=== PATIENT | female | born 1940 | race African-American/Black ===

== ENCOUNTER 2019-08-21 05:54 | Day surgery (SDC) | payer MEDICARE, OTHER ==
[~2019-08-21] VITALS: Ht 167.6 cm; Wt 80.1 kg
[2019-08-21] MEDS ORDERED: MICARDIS80 MG PO (06:46)
[2019-08-21] MEDS ORDERED: LEVOXYL0.025 MG PO (06:46)
[2019-08-21] MEDS ORDERED: VYTORIN 10 MG-41 TAB PO (06:47)
[2019-08-21] MEDS ORDERED: ULTRAM 50MG TAB50 MG PO (06:47)
[2019-08-21] MEDS ORDERED: TYLENOL 500MG500 MG PO (06:48)
[2019-08-21] MEDS ORDERED: ROBAXIN 75750 MG/TAB PO (06:48)
[2019-08-21] MEDS ORDERED: ZOVIRAX400 MG PO (06:49)
[2019-08-21] MEDS ORDERED: LACTULOSE10 GM/153 PO (06:50)
[2019-08-21 06:59] VITALS: BP 130/66; PULSE 71; TEMP 98.8
[2019-08-21 08:00] VITALS: BP 120/71; PULSE 66; TEMP 97.1
--- NOTE | 2019-08-21 08:00 | NUR ---
The patient arrived back to [facility] from the endoscopy suite at this time. The patient ambulated from the cart to the recliner in her room with the assistance of two and appeared to tolerate the activity well. The patient appears drowsy but arouses easily to her name. The patient denie wanting anything to eat to drink at this time. Post procedure vital signs were started at this time. Family at bedside. Call light is within reach. Will continue to monitor the patient.
[2019-08-21 08:15] VITALS: BP 130/61; PULSE 58
--- NOTE | 2019-08-21 08:15 | NUR ---
The patient appears more alert at this time and agrees to try some juice, pudidng and toast. The patient's vital signs appear stable. The patient's family remains at her bedside. Will continue to monitor the patient.
[2019-08-21 08:30] VITALS: BP 118/55; PULSE 62
--- NOTE | 2019-08-21 08:30 | NUR ---
The patient appears to be tolerating the food and drink well. The patient's vital signs remain stable. Will continue to monitor the patient.
[2019-08-21 08:45] VITALS: BP 117/62; PULSE 60
--- NOTE | 2019-08-21 08:50 | NUR ---
Discharge instructions were reviewed with the patient and her family at this time. They all verbalized understanding and have no questions for the nurse at this time. The patient's IV to her right anecubital was removed and a pressure dressing was applied to the site. The patient's family is going to help her get changed and notify the staff when she is ready to be escorted out.
--- NOTE | 2019-08-21 09:10 | NUR ---
The patient was escorted out via wheelchair to a private vehicle by LEW Del Angel. The patient's belongings and discharge paperwork were sent with her. The patient's family is present to drive her home.
== END 2019-08-21 09:10 | disposition home or self-care (01) ==
LOC: SDCO 05:54
DX: Z12.11 Encounter for screening for malignant neoplasm of colon (principal); K63.5 Polyp of colon; K62.89 Other specified diseases of anus and rectum; K57.30 Diverticulosis of large intestine without perforation or abscess without bleeding; Z88.0 Allergy status to penicillin; Z88.2 Allergy status to sulfonamides
CPT/HCPCS: J2250; J3010; J7030

== ENCOUNTER → 2019-09-13 | Outpatient (CLI) | payer MEDICARE, OTHER ==
[~2019-09-13] MED LIST: LACTULOSE10 GM/153 PO; LEVOXYL0.025 MG PO; MICARDIS80 MG PO; ROBAXIN 75750 MG/TAB PO; TYLENOL 500MG500 MG PO; ULTRAM 50MG TAB50 MG PO; VYTORIN 10 MG-41 TAB PO; ZOVIRAX400 MG PO
== END ==
LOC: MC.RAD 14:07
DX: Z12.31 Encounter for screening mammogram for malignant neoplasm of breast (principal); N63.20 Unspecified lump in the left breast, unspecified quadrant

== ENCOUNTER → 2019-09-20 | Outpatient (CLI) | payer MEDICARE, OTHER | LOC: MC.RAD 13:00 | DX: N63.20 Unspecified lump in the left breast, unspecified quadrant (principal) ==

== ENCOUNTER → 2020-03-24 | Outpatient (CLI) | payer MEDICARE, OTHER | LOC: COL.VAS 13:18 | DX: R55 Syncope and collapse (principal) ==

== ENCOUNTER 2020-05-17 21:21 | Inpatient (IN) | payer MEDICARE, OTHER ==
[~2020-05-17] VITALS: Ht 165.1 cm; Wt 90.5 kg
[2020-05-17 22:01] LABS: BASO % 0.3 % (0.0-2.0); GRAN # 4.6 (1.4-6.5); GRAN % 64.5 % (42.2-75.2); HEMOGLOBIN 11.3 g/dl (12.5-16.0); LYMPH % 28.1 % (20.0-51.0); MEAN CELL VOLUME 83 fl (80.0-100.0); MEAN CORPUSCULAR HEMOGLOBIN 27 pg (27.0-31.0); MEAN CORPUSCULAR HGB CONC 33 g/dl (33.0-37.0); MEAN PLATELET VOLUME 10.3 fl (7.4-10.4); MONO # 0.5 (0.1-0.6); MONO % 6.4 % (1.7-9.3); PLATELET COUNT 303 K/mm3 (130-400); RED BLOOD COUNT 4.14 M/mm3 (4.10-5.30); REDCELL DISTRIBUTION WIDTH-CV 14.4 % (11.5-14.5)
[2020-05-17 22:07] LABS: INR 1.1 (0.8-3.0); PROTHROMBIN TIME 11.8 SECONDS (9.7-12.8)
[2020-05-17 22:08] LABS: HEMATOCRIT 34.4 % (37.0-47.0)
[2020-05-17 22:09] LABS: PARTIAL THROMBOPLASTIN TIME 26.9 SECONDS (26.0-37.0)
[2020-05-17 22:12] LABS: ALBUMIN 4.2 gm/dL (3.5-5.0); BILIRUBIN,TOTAL 0.5 mg/dL (0.0-1.0); CALCIUM 9.4 mg/dL (8.4-10.2); CREATININE, serum 5.23 (0.52-1.25); POTASSIUM 5.2 mmol/L (3.4-5.0); TOTAL PROTEIN 8.8 gm/dL (6.4-8.2)
[2020-05-17 22:13] LABS: COLLECTION METHOD CATHETER
[2020-05-17 22:21] LABS: BUDDING YEAST Present /hpf; HYALINE CAST >12 /lpf; MUCOUS Present /lpf; PH 5 (5-8); SQUAMOUS EPITHELIAL 0-2 /hpf; URINE APPEARANCE Cloudy; URINE BACTERIA Rare /hpf; URINE BILIRUBIN Negative (NEGATIVE); URINE BLOOD Negative (NEGATIVE); URINE COLOR Amber; URINE GLUCOSE Negative (NEGATIVE); URINE KETONE Negative (NEGATIVE); URINE LEUKOCYTE ESTERASE Negative (NEGATIVE); URINE NITRATE Negative (NEGATIVE); URINE PROTEIN(semi-quant) 1+ (NEGATIVE); URINE UROBILINOGEN Negative (NEGATIVE)
[2020-05-17 22:31] LABS: TROPONIN-I 0.038 ng/mL (0.000-0.035)
[2020-05-18] VITALS (365 sets, daily range): BP systolic 113–157; BP diastolic 7–77; PULSE 65–81; TEMP 98.2–99.5; O2SAT 92–100
[2020-05-18 01:58] LABS: TSH w REFLEX 2.67 uIU/mL (0.465-4.680)
[2020-05-18 03:04] LABS: CREATININE, serum 4.25 (0.52-1.25)
[2020-05-18 03:15] LABS: FRACTIONAL EXCRETION OF NA+ 0.2 %
[2020-05-18 05:00] LABS: ALBUMIN 3.7 gm/dL (3.5-5.0); BILIRUBIN,TOTAL 0.4 mg/dL (0.0-1.0); CALCIUM 8.8 mg/dL (8.4-10.2); CREATININE, serum 3.9 (0.52-1.25); TOTAL PROTEIN 7.6 gm/dL (6.4-8.2)
[2020-05-18 05:02] LABS: BASO % 0.3 % (0.0-2.0); EOS % 0.3 % (0-4.0); GRAN # 4.8 (1.4-6.5); GRAN % 66.7 % (42.2-75.2); HEMATOCRIT 32.8 % (37.0-47.0); HEMOGLOBIN 10.5 g/dl (12.5-16.0); LYMPH % 27.3 % (20.0-51.0); MEAN CELL VOLUME 85 fl (80.0-100.0); MEAN CORPUSCULAR HEMOGLOBIN 27 pg (27.0-31.0); MEAN CORPUSCULAR HGB CONC 32 g/dl (33.0-37.0); MEAN PLATELET VOLUME 9.9 fl (7.4-10.4); MONO # 0.4 (0.1-0.6); MONO % 4.8 % (1.7-9.3); PLATELET COUNT 255 K/mm3 (130-400); RED BLOOD COUNT 3.87 M/mm3 (4.10-5.30); REDCELL DISTRIBUTION WIDTH-CV 14.6 % (11.5-14.5)
[2020-05-18 05:11] LABS: TROPONIN-I 6 HR POST INITIAL 0.026 ng/mL (0.000-0.034)
[2020-05-18 14:56] LABS: PARTIAL THROMBOPLASTIN TIME 31.3 SECONDS (26.0-37.0)
[2020-05-19] VITALS (7 sets, daily range): BP systolic 137–176; BP diastolic 51–76; PULSE 53–68; TEMP 97.8–99.4
[2020-05-19 09:21] LABS: BASO % 0.3 % (0.0-2.0); EOS % 0.3 % (0-4.0); GRAN # 4.6 (1.4-6.5); GRAN % 73.3 % (42.2-75.2); LYMPH # 1.2 (1.2-3.4); LYMPH % 19.9 % (20.0-51.0); MEAN CELL VOLUME 85 fl (80.0-100.0); MEAN CORPUSCULAR HGB CONC 32 g/dl (33.0-37.0); MEAN PLATELET VOLUME 9.9 fl (7.4-10.4); MONO # 0.4 (0.1-0.6); MONO % 5.6 % (1.7-9.3); PLATELET COUNT 304 K/mm3 (130-400); RED BLOOD COUNT 3.28 M/mm3 (4.10-5.30); REDCELL DISTRIBUTION WIDTH-CV 14.7 % (11.5-14.5)
[2020-05-19 09:27] LABS: BILIRUBIN,TOTAL 0.2 mg/dL (0.0-1.0); CALCIUM 8.4 mg/dL (8.4-10.2); CREATININE, serum 1.31 (0.52-1.25); HEMATOCRIT 27.7 % (37.0-47.0); HEMOGLOBIN 8.8 g/dl (12.5-16.0); MEAN CORPUSCULAR HEMOGLOBIN 27 pg (27.0-31.0); POTASSIUM 4.6 mmol/L (3.4-5.0); TOTAL PROTEIN 6.4 gm/dL (6.4-8.2)
[2020-05-19 18:23] LABS: HEMATOCRIT 28.8 % (37.0-47.0); HEMOGLOBIN 9.2 g/dl (12.5-16.0)
[2020-05-19 19:04] LABS: PARTIAL THROMBOPLASTIN TIME 168.4 SECONDS (26.0-37.0)
[2020-05-19 21:39] LABS: PARTIAL THROMBOPLASTIN TIME 78.5 SECONDS (26.0-37.0)
[2020-05-20] VITALS (7 sets, daily range): BP systolic 141–173; BP diastolic 50–83; PULSE 55–76; TEMP 98.6–99.7
[2020-05-20 04:45] LABS: BASO % 0.4 % (0.0-2.0); EOS # 0.1 (0.0-0.7); EOS % 1.1 % (0-4.0); GRAN # 3.7 (1.4-6.5); GRAN % 66.4 % (42.2-75.2); LYMPH # 1.4 (1.2-3.4); MEAN CELL VOLUME 84 fl (80.0-100.0); MEAN CORPUSCULAR HGB CONC 32 g/dl (33.0-37.0); MEAN PLATELET VOLUME 10.2 fl (7.4-10.4); MONO # 0.4 (0.1-0.6); MONO % 6.6 % (1.7-9.3); PLATELET COUNT 279 K/mm3 (130-400); RED BLOOD COUNT 3.12 M/mm3 (4.10-5.30); REDCELL DISTRIBUTION WIDTH-CV 14.6 % (11.5-14.5)
[2020-05-20 04:47] LABS: HEMATOCRIT 26.2 % (37.0-47.0); HEMOGLOBIN 8.3 g/dl (12.5-16.0); MEAN CORPUSCULAR HEMOGLOBIN 27 pg (27.0-31.0)
[2020-05-20 04:58] LABS: ALBUMIN 2.7 gm/dL (3.5-5.0); BILIRUBIN,TOTAL 0.2 mg/dL (0.0-1.0); CALCIUM 7.9 mg/dL (8.4-10.2); CREATININE, serum 0.94 (0.52-1.25); POTASSIUM 3.6 mmol/L (3.4-5.0)
[2020-05-20 05:22] LABS: TROPONIN-I 6 HR POST INITIAL 0.036 ng/mL (0.000-0.034)
[2020-05-21 03:54] VITALS: BP 151/57; PULSE 67; TEMP 99.3
[2020-05-21 07:47] LABS: MEAN CELL VOLUME 83 fl (80.0-100.0); MEAN CORPUSCULAR HGB CONC 33 g/dl (33.0-37.0); MEAN PLATELET VOLUME 11.1 fl (7.4-10.4); PLATELET COUNT 294 K/mm3 (130-400); RED BLOOD COUNT 3.25 M/mm3 (4.10-5.30); REDCELL DISTRIBUTION WIDTH-CV 14.4 % (11.5-14.5)
[2020-05-21 07:48] LABS: HEMATOCRIT 26.9 % (37.0-47.0); HEMOGLOBIN 8.8 g/dl (12.5-16.0); MEAN CORPUSCULAR HEMOGLOBIN 27 pg (27.0-31.0)
[2020-05-21 07:54] VITALS: BP 151/67; PULSE 60; TEMP 98.8
[2020-05-21 07:59] LABS: ALBUMIN 2.9 gm/dL (3.5-5.0); BILIRUBIN,TOTAL 0.2 mg/dL (0.0-1.0); CALCIUM 8.5 mg/dL (8.4-10.2); CREATININE, serum 0.94 (0.52-1.25); POTASSIUM 3.6 mmol/L (3.4-5.0); TOTAL PROTEIN 6.4 gm/dL (6.4-8.2)
[2020-05-21 09:06] LABS: BAND 7 % (0-10); EOSINOPHIL 1 % (0-4); LYMPHOCYTE 27 % (20.0-51.0); NEUTROPHILS 62 % (42.0-75.2); PLATELET ESTIMATE NORMAL (NORMAL)
[2020-05-21 12:08] VITALS: BP 144/66; PULSE 68; TEMP 98.6
[2020-05-21 16:46] VITALS: BP 167/55; PULSE 56; TEMP 98
[2020-05-21 19:31] VITALS: BP 165/55; PULSE 58; TEMP 99
[2020-05-21 23:19] VITALS: BP 157/62; PULSE 59; TEMP 100
[2020-05-22 03:30] VITALS: BP 164/51; PULSE 56; TEMP 98.6
[2020-05-22 06:33] LABS: MEAN CELL VOLUME 84 fl (80.0-100.0); MEAN CORPUSCULAR HGB CONC 33 g/dl (33.0-37.0); MEAN PLATELET VOLUME 10.8 fl (7.4-10.4); PLATELET COUNT 330 K/mm3 (130-400); RED BLOOD COUNT 3.24 M/mm3 (4.10-5.30); REDCELL DISTRIBUTION WIDTH-CV 14.4 % (11.5-14.5)
[2020-05-22 06:36] LABS: HEMATOCRIT 27.1 % (37.0-47.0); HEMOGLOBIN 8.8 g/dl (12.5-16.0); MEAN CORPUSCULAR HEMOGLOBIN 27 pg (27.0-31.0)
[2020-05-22 06:37] LABS: CALCIUM 8.7 mg/dL (8.4-10.2); CREATININE, serum 0.88 (0.52-1.25); MAGNESIUM 1.6 mg/dL (1.6-2.3); POTASSIUM 3.4 mmol/L (3.4-5.0)
[2020-05-22 07:42] LABS: BAND 13 % (0-10); EOSINOPHIL 2 % (0-4); LYMPHOCYTE 24 % (20.0-51.0); METAMYELOCYTE 1 % (0-0); NEUTROPHILS 54 % (42.0-75.2); PLATELET ESTIMATE NORMAL (NORMAL)
[2020-05-22] MEDS ORDERED: ELIQUIS 5MG PO (08:26)
[2020-05-22 08:36] VITALS: BP 166/63; PULSE 56; TEMP 98.7
[2020-05-22] MEDS ORDERED: ASPIRIN E.C. 8181 MG PO (09:14)
[2020-05-22] MEDS ORDERED: OMNICEF 300MG300 MG PO (09:19)
== END 2020-05-22 11:44 | DRG 871 ==
LOC: COL.ER 21:21 → ICU 23:26 → MEDICAL 05-18 16:50
PROVIDERS: Emergency Medicine; Nurse Practitioner Family; Physician Assistant; Student in an Organized Health Care Education/Training Program; ADMIT Hospitalist
PROC: 02HV33Z Insertion of Infusion Device into Superior Vena Cava, Percutaneous Approach (ICD-10-PCS; principal; 2020-05-19)
DX: A41.9 Sepsis, unspecified organism (principal); J18.9 Pneumonia, unspecified organism; K57.92 Diverticulitis of intestine, part unspecified, without perforation or abscess without bleeding; N17.9 Acute kidney failure, unspecified; I82.443 Acute embolism and thrombosis of tibial vein, bilateral; I82.453 Acute embolism and thrombosis of peroneal vein, bilateral; I82.411 Acute embolism and thrombosis of right femoral vein; R65.20 Severe sepsis without septic shock; E78.5 Hyperlipidemia, unspecified; E03.9 Hypothyroidism, unspecified; I12.9 Hypertensive chronic kidney disease with stage 1 through stage 4 chronic kidney disease, or unspecified chronic kidney disease; E87.5 Hyperkalemia; R79.89 Other specified abnormal findings of blood chemistry; N18.3 Chronic kidney disease, stage 3 (moderate); D63.1 Anemia in chronic kidney disease; I44.0 Atrioventricular block, first degree; R59.9 Enlarged lymph nodes, unspecified; Z88.2 Allergy status to sulfonamides; Z88.0 Allergy status to penicillin; Z87.891 Personal history of nicotine dependence; Z20.828 Contact with and (suspected) exposure to other viral communicable diseases
CPT/HCPCS: 99223-AI; 99232-AI; 99233-AI; 99239; C1751; C1892; J0360; J0456; J0610; J0696; J1170; J1644; J2270; J7030; J7050; Q9967

== ENCOUNTER 2020-05-22 10:52 | Inpatient (IN) | payer MEDICARE, OTHER ==
[~2020-05-22] VITALS: Ht 172.7 cm; Wt 93.3 kg
[~2020-05-22 10:52] MED LIST changes: +ASPIRIN E.C. 8181 MG PO; +ELIQUIS 5MG PO; +OMNICEF 300MG300 MG PO
--- NOTE | 2020-05-22 11:45 | NUR ---
Patient to room 335 by bed from the medical floor. Nurse oriented patient to location, bed and call light. Patient repositioned for comfort. IV fluids infusing into RT PICC. No further needs expressed from the patient. Call light within reach. Bed alarm on
[2020-05-22 17:37] VITALS: BP 166/60; PULSE 62; TEMP 98.7
--- NOTE | 2020-05-22 17:58 | NUR ---
PATIENT ARRIVED TO [facility] AT 1145 THIS AM FROM THE MEDICAL UNIT. PATIENT WAS TRANSPORTED VIA BED. THIS NURSE WAS NOT HERE AT THE TIME BUT EVEALUATED THE PATIENT AROUND 1315 TO MAKE SURE HER NEEDS WERE BEING MET.
[2020-05-23 03:59] VITALS: BP 145/59; PULSE 70; TEMP 99.3
--- NOTE | 2020-05-23 05:51 | NUR ---
RESTING QUIETLY. PT DENIES NEED FOR PAIN MEDICATION. STANDBY ASSIST TO TOILET USING WALKER.
--- NOTE | 2020-05-23 11:19 | NUR ---
Patient resting in recliner, call light in reach and alarm set. Patient refused group therapy this morning opting to sleep in. Patient was given Tylenol for temp of 99.3 this morning. Patient is asymptomatic. Patient has mild edema to right extremity that she reports started after her picc was placed. Denies pain and no redness was observed to right arm/hand. Denies questions at this time.
--- NOTE | 2020-05-23 13:29 | NUR ---
Plan: To return to [place] with DTR Pau as care support. Assessment: SW met with patient in room. Patient reports that she resides in and DTR helps her. Patient reports that her granddaughter is also a great resources. Patient reports that she prefers to use [facility]. Patient reports that she uses a cane for mobility and also has a walker. Patient reports that she is able to drive but her DTR will transport her home. Denies having or using [facility]. Action: SW offered reosourses, Educated on services available to her. Will continue to support dc plan. Patient denies knowing her DTR number,
--- NOTE | 2020-05-23 15:00 | NUR ---
Patient currently resting in bed, call light in reach and alarm set. She is visiting with daughter on the phone. This nurse had warehouse loader stop by to look at patients right arm/hand edema. PICC site was measured and was 38 cm so there was no increase in swelling at this time. No redness observed. Patient denies pain. Patient had temp rechecked and was 99.0. Patient given prn tylenol. Will continue to monitor.
--- NOTE | 2020-05-23 16:40 | NUR ---
Patient refused to answer any questions for the BIMS or any admission papers. Call placed to her daughter Pau Valencia and awaiting a return call.
--- NOTE | 2020-05-23 16:47 | NUR ---
Patient asked this nurse when she could go home. This nurse let her know that she just arrived to this new Room and that her therapy would continue this next week. She voiced understanding, but confusion about why she has to stay. Will continue to monitor.
[2020-05-23 16:51] VITALS: BP 152/60; PULSE 70; TEMP 98.3
--- NOTE | 2020-05-23 19:33 | NUR ---
PATIENT RESTING IN BED DURING CHANGE OF SHIFT REPORT FROM DAY SHIFT NURSE. BED ALARM ON.
--- NOTE | 2020-05-23 21:28 | NUR ---
PATIENT STATING SHE IS NOT FEELING GOOD, THAT HER BLOOD SUGAR WAS LOW. FSBS DONE RESULTING IN 120 LEVEL
--- NOTE | 2020-05-23 23:02 | NUR ---
OBSERVED PATIENT AMBULATE WITH SLIGHT UNSTEADY GAIT WITH C/O OF "NOT FEELING GOOD" STATING SHE FELT LIKE SHE WOULD "THROW UP". PATIENT GIVEN SPRITE TO DRINK THEN LATER REPORTED SHE FELT MUCH BETTER AFTER DRINKING SPRITE. GAIT SINCE THEN HAS BEEN MORE STEADY, WILL CONTINUE WITH FALL PRECAUTIONS, USING GAIT BELT AND WHEELED WALKER. BED ALARM ON WHEN PATIENT IN BED.
[2020-05-24 05:51] VITALS: BP 163/57; PULSE 63; TEMP 99
--- NOTE | 2020-05-24 06:50 | NUR ---
CHANGE OF SHIFT REPORT GIVEN TO DAY SHIFT NURSEJAMAL. BED ALARM ON. PATIENT SLEEPING DURING REPORT.
--- NOTE | 2020-05-24 07:05 | NUR ---
PATIENT SLEEPING IN BED AT BEDSIDE SHIFT REPORT. BED IN LOW, BED ALARM ON, AND CALL LIGHT WITHIN REACH. WILL CONTINUE TO ENCOURAGE PATIENT TO CALL FOR ASSITANCE
--- NOTE | 2020-05-24 15:23 | NUR ---
Patient's daughter Pau is giving her a bath at this time.
--- NOTE | 2020-05-24 17:09 | NUR ---
PATIENT'S DAUGHTER WAS UTILIZED TO ANSWER QUESTIONS REGARDING PATIENT'S PAST HISTORY DUE SOME COGNITIVE ISSUES. PATIENT'S DAUGHTER ALSO ASSISTED PATIENT WITH BED BATH THIS AFTERNOON. PATIENT DENIED PAIN THIS SHIFT. DISCUSSED PATIENT'S PAIN NEEDS TO PLAN PRIOR TO THERAPY TOMORROW. PATIENT RESTING AT THIS TIME. BED IN LOW, CALL LIGHT WITHIN REACH, BED ALARM ON.
[2020-05-24 18:03] VITALS: BP 144/58; PULSE 74; TEMP 99.5
--- NOTE | 2020-05-24 19:05 | NUR ---
CHANGE OF SHIFT REPORT RECEIVED FROM DAY SHIFT NURSE. BED ALARM ON. PATIENT SLEEPING IN BED DURING REPORT.
--- NOTE | 2020-05-24 20:00 | NUR ---
PATIENT AWAKENS WITH NAME CALLED, DENIES ANY C/O OR NEEDS WHEN ASKED. UP TO BATHROOM WITH ASST WITH SLOW BUT STEADY GAIT CURRENTLY. BED ALARM ON WHEN BACK TO IN BED.
[2020-05-25 04:36] VITALS: BP 165/64; PULSE 65; TEMP 98.6
--- NOTE | 2020-05-25 07:25 | NUR ---
CHANGE OF SHIFT REPORT GIVEN TO DAY SHIFT NURSEJAMAL. BED ALARM ON.
--- NOTE | 2020-05-25 08:22 | NUR ---
PATIENT SLEEPING IN BED AT BEDSIDE SHIFT REPORT. BED ALARM ON, CALL LIGHT WITHIN REACH, BED IN LOW.
[2020-05-25 15:55] VITALS: BP 138/47; PULSE 71; TEMP 98.7
--- NOTE | 2020-05-25 16:28 | NUR ---
SRI met with the patient to introduce oneself and to follow up after the weekend. The patient was resting and stated that she is doing okay. SRI then contacted the patient's daughter, Pau, and scheduled a patient/family meeting on at 1300. SRI to inform the IPR Director.
--- NOTE | 2020-05-25 17:33 | NUR ---
PATIENT WORKED WELL WITH THERAPY TODAY. IS RESTING IN BED, TOILETED RECENTLY AND SCD'S APPLIED. BED IN LOW, CALL ALARM ON, AND CALL LIGHT WITHIN REACH.
--- NOTE | 2020-05-25 18:45 | NUR ---
CHANGE OF SHIFT REPORT RECEIVED FROM DAY SHIFT NURSE. BED ALARM ON. PATIENT SLEEPING DURING REPORT, DENIES ANY NEEDS OR CONCERNS.
--- NOTE | 2020-05-25 20:00 | NUR ---
PATIENT WITH FATIGUE AFTER FULL DAY OF THERAPY. DENIES ANY NEEDS. REPORTS HAD BM THAT WAS LOOSE AND LARGE IN AMOUNT. OBSERVED PICC PORTS X2 WITH DIFFICULTY FLUSHING WITH SALINE. BED ALARM ON.
[2020-05-26 05:58] VITALS: BP 178/62; PULSE 59; TEMP 97.7
[2020-05-26 07:21] LABS: BASO % 0.3 % (0.0-2.0); EOS # 0.1 (0.0-0.7); EOS % 1.4 % (0-4.0); GRAN # 3.8 (1.4-6.5); GRAN % 58.4 % (42.2-75.2); LYMPH # 1.9 (1.2-3.4); LYMPH % 28.5 % (20.0-51.0); MEAN CELL VOLUME 85 fl (80.0-100.0); MEAN CORPUSCULAR HGB CONC 32 g/dl (33.0-37.0); MEAN PLATELET VOLUME 10.2 fl (7.4-10.4); MONO # 0.7 (0.1-0.6); MONO % 10.3 % (1.7-9.3); PLATELET COUNT 453 K/mm3 (130-400); RED BLOOD COUNT 3.24 M/mm3 (4.10-5.30); REDCELL DISTRIBUTION WIDTH-CV 14.6 % (11.5-14.5)
[2020-05-26 07:22] LABS: HEMATOCRIT 27.6 % (37.0-47.0); HEMOGLOBIN 8.8 g/dl (12.5-16.0); MEAN CORPUSCULAR HEMOGLOBIN 27 pg (27.0-31.0)
--- NOTE | 2020-05-26 07:26 | NUR ---
CHANGE OF SHIFT REPORT GIVEN TO DAY SHIFT NURSEJESUS. BED ALARM ON.
[2020-05-26 07:32] LABS: CALCIUM 9.1 mg/dL (8.4-10.2); CREATININE, serum 0.96 (0.52-1.25); MAGNESIUM 1.8 mg/dL (1.6-2.3)
--- NOTE | 2020-05-26 09:48 | NUR ---
Patient reported that she is getting a break out on her bottom and was causing her discomfort. She asked that she be started on her disease medication to prevent it from getting worse. This nurse called her daughter Pau and she reported that patient has a current prescription for Acyclovir 400 mg 1 tab Q Day for 7 days. This nurse contacted Dr. Diop to see if he is okay with her starting on this. Received return call from Dr. Diop and he was okay with patient starting this.
--- NOTE | 2020-05-26 10:00 | NUR ---
PICC intact right upper arm with sterile dressing change done with insertion site cleansed with chloraprep x 1, chlorhexidine impregnated disk applied, skin prep, stat lock, and tegaderm applied. attempted to flush ports and able to flush red port with blood return. unable to flush purple port. RN informed to obtain an order for cath-db. no other concerns voiced. re-wrapped with chrissie to protect catheter.
--- NOTE | 2020-05-26 10:02 | NUR ---
Upon observation of buttocks there was one closed lesion to inner gluteal cleft that was not weeping and there was no redness only irritation. See new order for Acyclovir per Dr. Diop.
--- NOTE | 2020-05-26 10:22 | NUR ---
Patient was seen by Renetta this morning due to her PICC line not being able to flush. Renetta recommended getting an order for Cath Flow. This will be discussed with Dr. Diop.
--- NOTE | 2020-05-26 13:14 | NUR ---
Robyn with infection control was contacted about patient having a closed lesion to inner gluteal cleft and was told patient takes Acylovir for this. She reported that since there are not open weeping lesions patient did not need to be on isolation precautions. Patient was started on The Acylovir this morning. Will continue to monitor.
--- NOTE | 2020-05-26 13:18 | NUR ---
Admission QIM scores were reviewed by the team. Code of 4 chosen for oral hygiene was determined by team discussion to be the most usual performance before interventions for this patient during the assessment period. Code of 4 chosen for toilet hygiene was determined by team discussion to be the most usual performance for this patient during the assessment period. Code of 4 chosen for rolling left to right was determined by team discussion to be the most usual performance for this patient during the assessment period. Code of 4 chosen for sit to lying was determined by team discussion to be the most usual performance for this patient during the assessment period. Code of 3 chosen for lying to sitting on side of bed was determined by team discussion to be the most usual performance for this patient during the assessment period. Code of 3 for sit to stand was determined by team discussion to be the most usual performance for this patient during the assessment period. Code of 3 for chair/bed to chair transfers was determined by team discussion to be the most usual performance for this patient during the assessment period. Code of 3 chosen for walk 10 feet was determined by team discussion to be the most usual performance for this patient during the assessment period.--Lety Vidaels,
[2020-05-26 17:35] VITALS: BP 152/69; PULSE 84; TEMP 98.7
--- NOTE | 2020-05-26 18:30 | NUR ---
CHANGE OF SHIFT REPORT RECEIVED FROM DAY SHIFT NURSE. BED ALARM ON.
--- NOTE | 2020-05-26 18:52 | NUR ---
Patient was given Cath Flow for PICC line and now Red port flushes well, Purple works, but is a little sluggish. Patient was seen by Dr. Diop today see new orders for Iron supplement; Norvasc for elevated blood pressures and Alpresoline for SBP >170. Patient currently resting in bed, call light in reach and bed alarm set. Patient denies any questions at this time.
[2020-05-27 05:17] VITALS: BP 153/71; PULSE 75; TEMP 98.9
--- NOTE | 2020-05-27 07:06 | NUR ---
CHANGE OF SHIFT REPORT GIVEN TO DAY SHIFT NURSEJESUS. BED ALARM ON.
--- NOTE | 2020-05-27 15:42 | NUR ---
SRI met with the patient to present and review the IPR Team Conference Note. SRI discussed the patient's progress and the team's recommendation for d/c this Monday, 05/29, with home health PT/OT. The patient was agreeable to the plan. SRI contacted and reviewed the above information with the patient's daughter, Pau. Pau was also agreeable to the plan. Pau asked that SRI leave Medicare.gov's list of home health agencies that serve [place] in the patient's room. SRI did this. SRI to continue to follow.
[2020-05-27 17:39] VITALS: BP 138/63; PULSE 71; TEMP 98.8
--- NOTE | 2020-05-27 18:22 | NUR ---
Patient is independent in her room with quad cane per PT. Patient attended all therapies today. Tolerated diet well. Was seen by Dr. Diop see his note. Discharge was discussed and patient will be DC'd on Monday.
--- NOTE | 2020-05-27 20:00 | NUR ---
Received report from LEW Peter. Pt is currently lying in bed sleeping. Pt has her call light within reach and her bed is in lowest position.
[2020-05-28 05:45] VITALS: BP 156/67; PULSE 70; TEMP 98.6
--- NOTE | 2020-05-28 06:36 | NUR ---
Pt has slept well during the night. Pt stated this morning that she did not need anything. Pt has been independent in her room all night. She has her call light within reach and her bed is in lowest position.
--- NOTE | 2020-05-28 15:02 | NUR ---
SRI attended a family meeting with patient, her daughter (Pau), and granddaughter. Also present was IPR Director, PT, OT, and ST. IPR Director started by explaining the purpose of the meeting. PT/OT/ST discussed the patient's progress and how a discharge date has been set for tomorrow, 05/29, with home health services for PT/OT. The patient and her family were agreeable to the plan. The team answered all questions. SRI then followed up with the patient and her family to inquire their home home preference. The patient and her family chose [facility]. SRI contacted and faxed a referral to Geri at [facility]. SRI awaiting their screen. SRI also presented and read the IM form outloud to the patient's daughter, Pau. Pau verbalized understanding and gave SRI approval to sign the form on her behalf. SRI provided her with a copy. The patient's daughter and granddaughter has DPOA-HC documents for the patient that they wished to get notarized. SRI attempted to contact the notaries in the hospital. They did not answer. SRI informed the patient's daughter and granddaughter. They wish to attempt again tomorrow, if a notary is in.
[2020-05-28] MEDS ORDERED: FERRO-TIME325 MG PO (15:45)
[2020-05-28] MEDS ORDERED: NORVASC 5MG5 MG/TAB PO (15:45)
--- NOTE | 2020-05-28 17:06 | NUR ---
Geri, at [facility], reports that they are able to accept the patient for services.
[2020-05-28 17:41] VITALS: BP 147/77; PULSE 97; TEMP 98.7
--- NOTE | 2020-05-28 18:02 | NUR ---
PATIENT LAYING IN BED. PATIENT STATES THAT SHE'S HAVING BACK PAIN AND REQUESTED A PAIN PILL. MEDICATION GIVEN AT THIS TIME. WILL REPORT OFF TO ONCOMING NURSE.
--- NOTE | 2020-05-28 19:15 | NUR ---
Pt sitting on in bed watching television. Pt has her call light within reach. Pt stated that she has already had something for pain.
[2020-05-29 05:37] VITALS: BP 133/67; PULSE 78; TEMP 98.5
--- NOTE | 2020-05-29 06:54 | NUR ---
Reported off to LEW Powell. Pt currently lying in bed awake. Pt has her call light within reach and her bed is in lowest position.
[2020-05-29 07:30] LABS: HEMOGLOBIN 8.8 g/dl (12.5-16.0)
--- NOTE | 2020-05-29 09:05 | NUR ---
PATIENT RESTING IN BED AT BEDSIDE SHIFT REPORT. PATIENT DENIES PAIN, BED IN LOW, CALL LIGHT WITHIN REACH.
--- NOTE | 2020-05-29 14:04 | NUR ---
Patient to discharge home today with [facility] PT/OT/Nursing. SW contacted Geri at [facility] and faxed discharge orders. No additional needs at this time.
--- NOTE | 2020-05-29 15:50 | NUR ---
Patient healthy summary, discharge summary, and home meds printed and reviwed with patient and daughter Pau. Stressed importance of follow up appointments and labs. Reviewed medications, and called prescriptions for Eliquis and Aspirin to [facility] in [place]. Belonging sgathered by PROGRAM ARRANGER and family. Patient transported via wc by PROGRAM ARRANGER and seatbelted for ride home. Patient and daugther denied questions.
== END 2020-05-29 13:47 | disposition home health service (06) | DRG 871 ==
PROVIDERS: ADMIT Internal Medicine
DX: A41.9 Sepsis, unspecified organism (principal); J18.9 Pneumonia, unspecified organism; N17.9 Acute kidney failure, unspecified; E87.2 Acidosis; I82.4Z3 Acute embolism and thrombosis of unspecified deep veins of distal lower extremity, bilateral; R19.7 Diarrhea, unspecified; R59.0 Localized enlarged lymph nodes; I10 Essential (primary) hypertension; D64.9 Anemia, unspecified; E78.5 Hyperlipidemia, unspecified; E03.9 Hypothyroidism, unspecified; R00.1 Bradycardia, unspecified; R53.81 Other malaise; Z79.891 Long term (current) use of opiate analgesic; Z79.82 Long term (current) use of aspirin; Z88.0 Allergy status to penicillin; Z88.2 Allergy status to sulfonamides
CPT/HCPCS: 99222-AI; 99232-AI; 99239; J2997

== ENCOUNTER → 2020-06-16 | Outpatient (CLI) | payer MEDICARE, OTHER ==
[~2020-06-16] MED LIST changes: +FERRO-TIME325 MG PO; +NORVASC 5MG5 MG/TAB PO
== END ==
LOC: COL.RAD 09:28
DX: J18.9 Pneumonia, unspecified organism (principal)

== ENCOUNTER 2020-10-09 18:36 | Emergency (ER) | payer MEDICARE, OTHER ==
[~2020-10-09] VITALS: Ht 172.7 cm; Wt 92.7 kg
[2020-10-09 18:40] VITALS: TEMP 97.2
[2020-10-09 20:41] LABS: BASO % 0.7 % (0.0-2.0); EOS # 0.1 (0.0-0.7); EOS % 1.5 % (0-4.0); GRAN # 3.5 (1.4-6.5); GRAN % 59.3 % (42.2-75.2); HEMOGLOBIN 11.1 g/dl (12.5-16.0); LYMPH # 1.9 (1.2-3.4); LYMPH % 32.1 % (20.0-51.0); MEAN CELL VOLUME 84 fl (80.0-100.0); MEAN CORPUSCULAR HEMOGLOBIN 27 pg (27.0-31.0); MEAN CORPUSCULAR HGB CONC 32 g/dl (33.0-37.0); MEAN PLATELET VOLUME 9.8 fl (7.4-10.4); MONO # 0.4 (0.1-0.6); MONO % 6.2 % (1.7-9.3); PLATELET COUNT 258 K/mm3 (130-400); RED BLOOD COUNT 4.11 M/mm3 (4.10-5.30); REDCELL DISTRIBUTION WIDTH-CV 13.2 % (11.5-14.5)
[2020-10-09 20:43] LABS: HEMATOCRIT 34.7 % (37.0-47.0)
[2020-10-09 20:54] LABS: ALANINE AMINOTRANSFERASE 21 U/L (4-34); ALBUMIN 4.3 gm/dL (3.5-5.0); ALKALINE PHOSPHATASE 78 U/L (50-136); ANION GAP 7 mmol/L (7-16); AST,SGOT 26 U/L (15-37); BILIRUBIN,TOTAL 0.3 mg/dL (0.0-1.0); BLOOD UREA NITROGEN 17 mg/dL (7-17); C-REACTIVE PROTEIN < 0.5 mg/dL (0.0-0.9); CALCIUM 9.9 mg/dL (8.4-10.2); CARBON DIOXIDE 28 mmol/L (22-30); CHLORIDE 104 mmol/L (98-107); CREATININE, serum 1.15 (0.52-1.25); GLUCOSE 114 mg/dL (74-106); LIPASE 63 U/L (23-300); POTASSIUM 4.4 mmol/L (3.4-5.0); SODIUM 138 mmol/L (137-145); TOTAL PROTEIN 8.5 gm/dL (6.4-8.2)
[2020-10-09 21:32] LABS: COLLECTION METHOD CATHETER
[2020-10-09 21:59] LABS: MUCOUS Present /lpf; PH 6 (5-8); URINE APPEARANCE Clear; URINE BACTERIA Rare /hpf; URINE BILIRUBIN Negative (NEGATIVE); URINE BLOOD Negative (NEGATIVE); URINE COLOR Yellow; URINE GLUCOSE Negative (NEGATIVE); URINE KETONE Negative (NEGATIVE); URINE LEUKOCYTE ESTERASE 2+ (NEGATIVE); URINE NITRATE Negative (NEGATIVE); URINE PROTEIN(semi-quant) Negative (NEGATIVE); URINE UROBILINOGEN Negative (NEGATIVE)
[2020-10-09] MEDS ORDERED: MACROBID 1100 MG/CAP PO (23:20)
[2020-10-09] MEDS ORDERED: ZOFRAN ODT4 MG PO (23:20)
[2020-10-09 23:45] VITALS: BP 150/67; PULSE 81
== END 2020-10-09 23:45 | disposition home or self-care (01) ==
LOC: COL.ER 18:36
PROVIDERS: Emergency Medicine
DX: U07.1 COVID-19 (principal); R11.10 Vomiting, unspecified; N39.0 Urinary tract infection, site not specified; L02.12 Furuncle of neck; I10 Essential (primary) hypertension; Z86.718 Personal history of other venous thrombosis and embolism; Z90.49 Acquired absence of other specified parts of digestive tract; Z88.0 Allergy status to penicillin; Z88.2 Allergy status to sulfonamides; Z79.01 Long term (current) use of anticoagulants; Z79.82 Long term (current) use of aspirin
CPT/HCPCS: J0696; J2405; J7030; Q9967

== ENCOUNTER 2021-03-15 11:12 | Inpatient (IN) | payer MEDICARE, OTHER ==
[~2021-03-15] VITALS: Ht 165.1 cm; Wt 105.0 kg
[~2021-03-15 11:12] MED LIST changes: +MACROBID 1100 MG/CAP PO; +ZOFRAN ODT4 MG PO
[2021-04-12] VITALS (18 sets, daily range): BP systolic 123–197; BP diastolic 59–97; PULSE 55–94; TEMP 97.6–98.7
[2021-04-12] MEDS ORDERED: ZOVIRAX51 TP (08:32)
[2021-04-12] MEDS ORDERED: MYCOSTATIN100000 U/1 TP (08:33)
[2021-04-12] MEDS ORDERED: VITAMIN C500 MG PO (08:33)
[2021-04-12] MEDS ORDERED: IRON TABLETS325 MG PO (08:33)
[2021-04-12] MEDS ORDERED: VYTORIN 10 MG-41 TAB PO (08:33)
[2021-04-12] MEDS ORDERED: FOLIC ACID0.4 MG PO (08:34)
--- NOTE | 2021-04-12 13:49 | NUR ---
Patient received from [facility] Pacu nurse [id number]. Patient has been sleeping soundly. Patient daughter was at bedside. Patient spinal block still working unable to wiggle her toes. Right knee dressing chrissie wrap clean dry & intact. Syd to left leg. Scds ble. Ivf. Will monitor closely.
[2021-04-12] MEDS ORDERED: ELIQUIS 2.5 PO (14:39)
--- NOTE | 2021-04-12 19:32 | NUR ---
Patient has struggled with pain since her spinal wore off. PO norco did not relieve her pain, IV dilaudid & morphine also did not seem to relieve pain. I spoke with Lee Ureña orders obtained. Patient rated her pain a 9/10 vs 10/10 after.Patient Rle has been elevated & iced. Albert wrap to RLE loosened per patient request. Patient BP has been elevated. Orders obtained for pain to take her home Micardis. Patient took. This did not seem to change her blood pressure. Josue called produce production team member clitnon SALVADOR for further orders. Patient has been up to the bathroom twice and voided. 2 assist with walker & gaitbelt. She tolerated dinner without nausea. Int. Patient supportive daughter has been at bedside. Jaret maxwell to resume cares.
[2021-04-13] VITALS (8 sets, daily range): BP systolic 149–176; BP diastolic 55–88; PULSE 89–111; TEMP 98.5–99.3
[2021-04-13 09:46] LABS: HEMATOCRIT 30.1 % (37.0-47.0); HEMOGLOBIN 9.5 g/dl (12.5-16.0)
--- NOTE | 2021-04-13 11:20 | NUR ---
Initial visit; Patient thanked Radio Frequency Design Engineer for looking in on her, offering prayer and God's blessings.
--- NOTE | 2021-04-13 11:35 | NUR ---
Partial assessment. Patient reports that she is in pain and can not complete assessment and would like DTR to complete when she comes to visit. Patient reports that she resides with her DTR in [place] but they have stairs and will not be able to get up the stairs. Patient reports that her PCP is and sees Dr. Anthony for surg. DTR is Mary Valencia, will follow up for full assessment and to discuss IPR, SNF, for care DC.
--- NOTE | 2021-04-13 12:51 | NUR ---
SW met with DTR about care support and confirmed stairs. SW spoke with dtr and patient about IPR support and patient is interested. Spoke with [facility] to confirm the choice. [facility] [place] [facility]. No Oxygen devices and reports that she is healthy generally. No other specialist. Patient reports that she is able to drive herself if needed to. DTR reports that she will take care of driving. NF. Hernandez's contact
--- NOTE | 2021-04-13 19:35 | NUR ---
Pt. sitting up in bed with daughter at bedside. Pt. is A&OX3, assessment complete. INT to lt. forearm patent. Pt. reported pain at a 6 on pain scale, gaving pain meds per orders. Pt. deneis further needs, call light within reach.
[2021-04-14 04:00] VITALS: BP 146/55; PULSE 105; TEMP 99.7
[2021-04-14 07:04] LABS: HEMATOCRIT 25.9 % (37.0-47.0); HEMOGLOBIN 8.2 g/dl (12.5-16.0)
[2021-04-14 07:38] VITALS: BP 131/50; PULSE 94; TEMP 99
--- NOTE | 2021-04-14 07:51 | NUR ---
RECIEVED REPORT FROM LEW FLOOD. PATIENT RESTING COMFORTABLE IN BED. CALL LIGHT AND BEDSIDE TABLE ARE WITHIN REACH. WILL CONTINUE TO MONITOR PATIENT THROUGHOUT SHIFT.
--- NOTE | 2021-04-14 10:22 | NUR ---
SRI informed that patient would need assistance with placement for rehab. SW spoke to patient, and patient stated that there was a staff member that came and spoke to her about IPR. SRI confirmed with Yisel that patient would be going to IPR room 339 today, 04/14/21. SRI informed patient's nurse and informed daughter Pau at [phone]. SRI will continue to follow.
--- NOTE | 2021-04-14 10:39 | NUR ---
PATIENT STATES PAIN IS 10/10 AND REQUESTED SOMETHING STRONGER BECAUSE CURRENT MEDICATION IS NOT STRONG ENOUGH. THIS NURSE EDUCATED PATIENT ON THE IMPORTANCE TO KEEP ICE ON KNEE TO HELP WITH INFLAMMATION. THIS NURSE TRIED TO USE DISTRACTING PATIENT TO KEEP HER FROM THINKING OF PAIN BUT PATIENT WAS NOT VERY RESPONSIVE. FOCUSED ON PAIN. WILL CONTINUE TO MONITOR PATIENT THROUGHOUT SHIFT.
[2021-04-14 11:23] VITALS: BP 145/52; PULSE 84; TEMP 98.6
--- NOTE | 2021-04-14 13:06 | NUR ---
REASSESSED PATIENT'S PAIN LEVEL. THIS NURSE ASKED PATIENT WHAT HER CURRENT PAIN LEVEL WAS AND SHE STATED 9/10. THIS NURSE ASKED HER IF PAIN MEDICATION WORKED BECAUSE PRIOR TO THIS SHE STATED PAIN WAS GETTING BETTER. PATIENT STATED "I'M SORRY. THIS PAIN HAS ME THINKING CRAZY." SHE STATED PAIN WAS LOWER THAN BEFORE AND SETTLED ON 7/10 PAIN LEVEL. WILL CONTINUE TO MONITOR PATIENT THROUGHOUT SHIFT.
--- NOTE | 2021-04-14 13:45 | NUR ---
Report given to LEW Duenas. Patient was escorted to [facility], Room #339. Patient's room at surgical Room 328, cleared from all belongings.
== END 2021-04-14 13:30 | DRG 470 ==
LOC: SURG 04-12 07:43 → INPTSU 04-12 07:43 → SURG 04-12 09:30
PROVIDERS: ADMIT Orthopaedic Surgery Sports Medicine
PROC: 0SRC0J9 Replacement of Right Knee Joint with Synthetic Substitute, Cemented, Open Approach (ICD-10-PCS; principal; 2021-04-12 11:20)
DX: M17.11 Unilateral primary osteoarthritis, right knee (principal); Z20.822 Contact with and (suspected) exposure to COVID-19; E78.5 Hyperlipidemia, unspecified; E11.9 Type 2 diabetes mellitus without complications; E03.9 Hypothyroidism, unspecified; K21.9 Gastro-esophageal reflux disease without esophagitis
CPT/HCPCS: A9284; C1713; C1776; J0360; J0690; J1170; J2270; J7030

== ENCOUNTER 2021-04-14 10:59 | Inpatient (IN) | payer MEDICARE, OTHER ==
[~2021-04-14] VITALS: Ht 165.1 cm; Wt 106.2 kg
[~2021-04-14 10:59] MED LIST changes: +ELIQUIS 2.5 PO; +FOLIC ACID0.4 MG PO; +IRON TABLETS325 MG PO; +MYCOSTATIN100000 U/1 TP; +VITAMIN C500 MG PO; +ZOVIRAX51 TP
--- NOTE | 2021-04-14 13:45 | NUR ---
Patient transfered to room 339 by wheelchair. Alert and oriented x 3. Acewrap to Right knee noted. Pedal pulses intact. Edema +1 to BLE. States aching to RLE, educated patient on pain medications. Syd hose to LLE. SCDs to BLE. Denies further needs at this time. Patient oriented to room.
[2021-04-14 15:57] VITALS: BP 117/53; PULSE 106; TEMP 98.6
--- NOTE | 2021-04-14 18:10 | NUR ---
Patient doing well since transfer from surgical. Up to BSC x1 assist with prompting to turn. Educated patient on pain medications. Denies further needs at this time. Will report off to manufacturing shift supervisor.
--- NOTE | 2021-04-14 19:00 | NUR ---
RECEIVED CHANGE OF SHIFT REPORT FROM DAY SHIFT NURSE. BED ALARM ON, CALL LIGHT WITHIN REACH. REQUESTS PAIN MEDS WHEN NEXT AVAILABLE.
[2021-04-15 05:25] VITALS: BP 126/41; PULSE 94; TEMP 99.1
--- NOTE | 2021-04-15 07:32 | NUR ---
CHANGE OF SHIFT REPORT GIVEN TO DAY SHIFT NURSE, JESUS HACKETT.
--- NOTE | 2021-04-15 07:39 | NUR ---
Patient resting on the side of the bed, call light in reach and bed alarm set. Rating pain 10/10 to right knee. Given prn pain meds. Will continue to monitor.
--- NOTE | 2021-04-15 11:55 | NUR ---
Welcomed pt to Rehab unit. Explained the rehab process & goals. Complete SW assessment w/ pt. She is alert & oriented & able to communicate her needs & wants. She is is having difficulty w/ memory & inquired if she would like to have the ST work w/ her, which she was interested in. She does wear glasses, no issues w/ hearing, & has her own teeth. She lives w/ her daughter in a split level home. Pt is unable to tell SW how many steps she has to enter or w/in the home. From her last stay, she had reported 3 steps to enter w/out handrail & 4 step to main level w/ handrail on the right. The bathroom has a tub/shower combo w/ curtain, grab bars, hand held shower head. The toliet is standard height w/ toilet seat riser & has grab bars. Pt reports she walks w/ a r/walker & independent w/ her self care. She also reported doing her own medication management & finance management. She has her own s/cane, shower seat/chair, toilet seat riser, r/walker, & 4/w/walker. Pharmacy: [facility] & reports she has no concerns or issues w/ affording her medications. PCP: Dr. Ramirez. She does have DPOA paperwork, which the hospital should have on file. Pt had no questions/concerns at this time about her rehab stay. SW will contine to work w/ pt during his stay to ensure d/c recommendations from the team, as plan is for her to return home.
[2021-04-15 12:24] VITALS: BP 132/46; PULSE 80; TEMP 98.7
--- NOTE | 2021-04-15 19:56 | NUR ---
Patient attended all therapies this shift. Has not had a BM since Monday and was started on scheduled bowel meds. Patient's left knee pain has been managed with prn pain meds. Patient currently resting in bed, call light in reach and bed alarms set. Will continue to monitor.
[2021-04-16 05:46] VITALS: BP 118/51; PULSE 96; TEMP 98.8
[2021-04-16 07:10] LABS: BASO % 0.3 % (0.0-2.0); EOS # 0.1 (0.0-0.7); GRAN # 3.4 (1.4-6.5); GRAN % 56.9 % (42.2-75.2); LYMPH # 1.8 (1.2-3.4); LYMPH % 30.7 % (20.0-51.0); MEAN CELL VOLUME 87 fl (80.0-100.0); MEAN CORPUSCULAR HGB CONC 31 g/dl (33.0-37.0); MEAN PLATELET VOLUME 9.8 fl (7.4-10.4); MONO # 0.6 (0.1-0.6); MONO % 9.8 % (1.7-9.3); PLATELET COUNT 261 K/mm3 (130-400); RED BLOOD COUNT 2.81 M/mm3 (4.10-5.30); REDCELL DISTRIBUTION WIDTH-CV 13.4 % (11.5-14.5)
[2021-04-16 07:13] LABS: HEMATOCRIT 24.3 % (37.0-47.0); HEMOGLOBIN 7.6 g/dl (12.5-16.0); MEAN CORPUSCULAR HEMOGLOBIN 27 pg (27.0-31.0)
[2021-04-16 07:20] LABS: CALCIUM 9.2 mg/dL (8.4-10.2); CREATININE, serum 1.29 (0.52-1.25); MAGNESIUM 2.4 mg/dL (1.6-2.3); POTASSIUM 4.6 mmol/L (3.4-5.0)
--- NOTE | 2021-04-16 09:14 | NUR ---
Left message for Grand daughter Steven to return her call. Awaiting her return call.
--- NOTE | 2021-04-16 11:22 | NUR ---
Received a call from Grand daughter for an update. Grand daughter dropped off suitcase with misc. items in it including ipad and package maker as well as a case of spring bottled water.
--- NOTE | 2021-04-16 11:27 | NUR ---
Patient returned from PT and is currently resting in bed, call light in reach and bed alarm set. Will continue to monitor.
--- NOTE | 2021-04-16 12:33 | NUR ---
Several visit attempts; Embedded Systems Designer left prayer card informing patient of the availability of spiritual care from Embedded Systems Designer at our hospital.
--- NOTE | 2021-04-16 13:49 | NUR ---
Visited w/ pt, who is primarily concerned about getting a muscle relaxant because after therapy her hand lock up & couldn't use it. Told her that nurse is probably working on it just have to be patient. Asked pt how therapy went today & she kept going back to her hand & muscle relaxant. Finally got her to focus on telling SW 1 thing she is doing better today then she could do yesterday. Got her to tell SW that the therapists told her she is moving better today. Asked her if she feels she is moving better & she acknowledged that she is. Told her to have a good weekend & SW would check on her Monday.
[2021-04-16] MEDS ORDERED: SKELAXIN 800MG800 MG PO (13:50)
[2021-04-16 18:00] VITALS: BP 121/47; PULSE 84; TEMP 98.5
--- NOTE | 2021-04-16 19:53 | NUR ---
Call placed to daughter Pau to get clarification on a current muscle relaxer that patient reports she has been taking prn. (Metaxalone 800 mg one PO TID as needed.) This was communicated to MODESTO Coleman see new order in EMR. Reported off to night nurse.
--- NOTE | 2021-04-16 21:00 | NUR ---
RESTING IN BED. C/O MUSCLE SPASMS RETURNING WITH INCISIONAL PAIN. SEE MAR FOR PAIN MED GIVEN. MAX 1 ASSIST TO BSC TRANSFER. PT VOIDED W/O DIFFICULTY. BACK TO BED. NEEDED MAX ASSIST TO GET OUT AND BACK IN TO BED. WILLIE GRIFFIN AND SCD'S ON.
[2021-04-17 04:13] VITALS: BP 142/51; PULSE 83; TEMP 99
[2021-04-17 07:33] LABS: BASO % 0.5 % (0.0-2.0); EOS # 0.2 (0.0-0.7); EOS % 2.6 % (0-4.0); GRAN # 3.3 (1.4-6.5); GRAN % 53.3 % (42.2-75.2); LYMPH # 2.2 (1.2-3.4); LYMPH % 35.4 % (20.0-51.0); MEAN CELL VOLUME 84 fl (80.0-100.0); MEAN CORPUSCULAR HGB CONC 32 g/dl (33.0-37.0); MEAN PLATELET VOLUME 9.4 fl (7.4-10.4); MONO # 0.5 (0.1-0.6); MONO % 7.9 % (1.7-9.3); PLATELET COUNT 315 K/mm3 (130-400); RED BLOOD COUNT 3.11 M/mm3 (4.10-5.30); REDCELL DISTRIBUTION WIDTH-CV 13.3 % (11.5-14.5)
[2021-04-17 07:43] LABS: HEMATOCRIT 26.2 % (37.0-47.0); HEMOGLOBIN 8.3 g/dl (12.5-16.0); MEAN CORPUSCULAR HEMOGLOBIN 27 pg (27.0-31.0)
--- NOTE | 2021-04-17 08:00 | NUR ---
Nursing staff assisted patient onto BSC 2x assist with pivot transfer, walker and gait belt.Patient stated pain 8/10 in right leg. Pain medication given as requested. Right leg dressing CDI. Patient A&Ox4. VSS. Independent with eating. Waiting on family to bring the patients glasses to sign paperwork. Call light within reach. Bed alarm on
[2021-04-17 16:17] VITALS: BP 144/60; PULSE 81; TEMP 98.6
--- NOTE | 2021-04-17 17:41 | NUR ---
Patient has been complaining of pain in the right knee throughout the shift thats been unrelieved with patient medication, elevation and ice. Patient worked with therapy and tolerated well. Pain medication given when requested. Dressing to right knee CDI. VSS. Patient 2xassist with gait belt and walker. Calls when needing assistance to the BSC. No further needs expressed from the patient. Call light within reach. Bed alarm on
[2021-04-18 05:49] VITALS: BP 126/51; PULSE 79; TEMP 98.7
--- NOTE | 2021-04-18 09:23 | NUR ---
Patient resting in bed, call light in reach and alarm set. Patient was independent with eating this morning. Refused grooming this morning, will try again later.
--- NOTE | 2021-04-18 14:49 | NUR ---
Patient has ambulated from the bed to the chair and was up and down from the chair a few times for some exercise. She said that she would let me walk her this afternoon in the hallway. She is currently resting in bed wanting a short nap, call light in reach and bed alarm set. Patient was independent with her lunch. Reported 7/10 pain to right knee and given prn Ultram this afternoon. Denies any questions at this time.
[2021-04-18 18:00] VITALS: BP 123/41; PULSE 86; TEMP 98.7
--- NOTE | 2021-04-18 21:00 | NUR ---
PT RESTING IN BED. C/O RT KNEE PAIN. SEE MAR FOR PAIN MED GIVEN. CALL LIGHT IN REACH. BED ALARM SET.
[2021-04-19 04:59] VITALS: BP 159/69; PULSE 87; TEMP 98.3
--- NOTE | 2021-04-19 11:38 | NUR ---
Patient resting in bed, call light in reach and bed alarm set. She attended all morning therapies.
--- NOTE | 2021-04-19 13:18 | NUR ---
Admission QIM scores were reviewed by the team. Code of 1 chosen for toilet hygiene was determined by team discussion to be the most usual performance for this patient during the assessment period.--Lety Vidales,
[2021-04-19 16:59] VITALS: BP 134/55; PULSE 86; TEMP 98.5
--- NOTE | 2021-04-19 19:25 | NUR ---
RECEIVED CHANGE OF SHIFT REPORT FROM DAY SHIFT NURSE. BED ALARM ON WHEN BACK IN BED. DENIES ANY NEEDS AT THIS TIME.
--- NOTE | 2021-04-19 20:00 | NUR ---
DENIES CHEST PAIN/SOA AT THIS TIME. DENIES NUMBNESS/TINGLING TO EXTREMITIES. SEE MAR FOR MEDS GIVEN. BED ALARM ON WHEN IN BED.
--- NOTE | 2021-04-19 20:21 | NUR ---
Patient attended all therapies this shift. She is now walking to the bathroom instead of using the BSC during the day. Patient did report more pain this afternoon and was given pain meds with good effect. She is currently resting in bed, call light in reach and bed alarm set at this time. Reported off to night nurse.
[2021-04-20 04:38] VITALS: BP 146/53; PULSE 89; TEMP 98.8
--- NOTE | 2021-04-20 07:21 | NUR ---
CHANGE OF SHIFT REPORT GIVEN TO DAY SHIFT NURSE, MARISOL HACKETT.
--- NOTE | 2021-04-20 09:30 | NUR ---
resting in bed, full assessment completed, see interventions for further info, c/o pain and medicated with percocet 5mg, physical therapy in to work with patient
--- NOTE | 2021-04-20 10:53 | NUR ---
Contacted pt's daughter, Pau. Inquired about the home stair situation. There are 3 steps to enter & 7-8 steps to the main level w/ handrail on right, which pt stays on. Also talked about scheduling a pt/family meeting for tomorrow, 04/21/21. She stated she would be able to be here at 1:00 pm.
--- NOTE | 2021-04-20 12:30 | NUR ---
returned from group therapy and was up to bathroom and now is sitting on side of bed having lunch
--- NOTE | 2021-04-20 17:14 | NUR ---
was up to bathroom and now is back in bed and ready for supper, denies needs
[2021-04-20 18:32] VITALS: BP 117/85; PULSE 87; TEMP 99.3
--- NOTE | 2021-04-20 18:32 | NUR ---
Temp 99.3, patient encouraged to C&DB, informed LEW Chaudhary
--- NOTE | 2021-04-20 19:13 | NUR ---
RECEIVED CHANGE OF SHIFT REPORT FROM DAY SHIFT NURSE. BED ALARM ON WHEN IN BED. REQUESTING PAIN MEDS WHEN NEXT AVAILABLE.
--- NOTE | 2021-04-20 20:00 | NUR ---
DENIES CHEST PAIN/SOA/NAUSEA AT THIS TIME. RESTING IN BED WITH BED ALARM ON.
--- NOTE | 2021-04-21 02:58 | NUR ---
SLEEPING, DOES NOT WAKE WHEN ROOM ENTERED BY STAFF. BED ALARM ON. BREATHING NONLABORED AND EVEN ON OBSERVATION.
[2021-04-21 05:07] VITALS: BP 129/52; PULSE 91; TEMP 99
--- NOTE | 2021-04-21 06:30 | NUR ---
Patient is sleeping in bed. Call light and bedside table are within reach. will continue to monitor patient throughout shift.
--- NOTE | 2021-04-21 07:06 | NUR ---
CHANGE OF SHIFT REPORT GIVEN TO DAY SHIFT NURSE, SABRINA HACKETT.
--- NOTE | 2021-04-21 13:30 | NUR ---
Conducted Family Meeting w/ pt & daughter & via phone pt's granddaughter. Also present was the PT, OT, & Soap Slabber/SRI. Team explained how Stephanie has been progress & doing functionally. Informed them of d/c date for 04/27/21 w/ recommendation for home health PT/OT. Daughter asked some questions, which team answered. Family's biggest concern is the stairs, which therapy has been working towards. Following the meeting, SW provided a copy of the Team Conference notes & a list of home health agencies in the [place] area. Also provided the daughter w/ SW's phone number.
[2021-04-21 16:00] VITALS: BP 130/40; PULSE 79; TEMP 98.9
--- NOTE | 2021-04-21 21:00 | NUR ---
RETURNED FROM BR WITH RN FLOAT. WILLIE HOSE OFF. SCD'S ON BILAT. NO NEEDS AT THIS TIME. CALL LIGHT IN REACH. BED ALARM SET.
[2021-04-22 04:29] VITALS: BP 137/51; PULSE 84; TEMP 99
--- NOTE | 2021-04-22 06:54 | NUR ---
Patient was seen this morning by MODESTO Howard. He removed the aqua cell and did not replace--WILLIAM. He also encouraged patient to keep her knee stretched out as much as possible by not placing a pillow right under the knew. He explained the complications of that and patient acknowledged she understood.
--- NOTE | 2021-04-22 08:15 | NUR ---
Report received from LEW Serrano. Patient is awake in bed. Call light and bedside table are within reach. Will continue to monitor patient throughout shift.
--- NOTE | 2021-04-22 13:44 | NUR ---
Patient has completed all therapy for the day and is resting in bed. Will continue to monitor patient throughout shift.
--- NOTE | 2021-04-22 14:20 | NUR ---
Patient has completed all therapies and is resting in bed. Call light and bedside table are within reach.
[2021-04-22 15:42] VITALS: BP 122/47; PULSE 66; TEMP 99.4
--- NOTE | 2021-04-22 19:56 | NUR ---
ASSISTED BACK TO BED FROM BR WITH WALKER. PT PROVIDED ALL TOILETING HYGIENE CARES PER SELF. HAD MED SOFT FORMED BM WITH VOID. MOVING BETTER. NEEDED VERY LITTLE ASSIST LIFTING LEGS INTO BED. WILLIE HOSE OFF AT THIS TIME. SCD'S ON BILAT. CALL LIGHT IN REACH. BED ALARM SET.
[2021-04-23 04:52] VITALS: BP 128/53; PULSE 74; TEMP 98.7
--- NOTE | 2021-04-23 08:00 | NUR ---
Patient called the nursing staff for assistance to the bathroom. Patient independent with getting out of bed. Standby assist with gait belt and walker to the bathroom. A&Ox4. VSS. Reported pain in right knee, no pain medication requested. Patient standby assist to the edge of bed to eat breakfast. No further needs expressed. Call light within reach
--- NOTE | 2021-04-23 10:15 | NUR ---
Visited w/ pt & discussed her upcoming d/c on 04/27/21. She did comment that she felt she was doing better & would be ready to go home on Monday. We talked about the team recommending home health for therapy & that her daughter has the list. She stated she would talk w/ her daughter about who they want to use. She also asked about when she could leave on Monday & told her that it generally is after lunch. She did not have any other questions/concerns at this time.
[2021-04-23 16:01] VITALS: BP 129/47; PULSE 79; TEMP 99.1
--- NOTE | 2021-04-23 17:32 | NUR ---
Patient had a productive day today. Worked with therapy and tolerated well. A&Ox4. VSS. Reported pain in right knee after completing therapy for the day, nurse was going to administer pain medication, but the patient already fell asleep. Patient woke up and the nurse was a standby assist with gait belt and walker to the bathroom. Patient currently sitting on the edge of bed eating dinner. Pain medication given per patient request. No further needs expressed from the patient. Call light within reach
--- NOTE | 2021-04-23 19:16 | NUR ---
RECEIVED CHANGE OF SHIFT REPORT FROM DAY SHIFT NURSE. PATIENT PUT BACK TO BED, BED ALARM ON WITH CALL LIGHT WITHIN REACH. DENIES ANY NEEDS DURING REPORT.
[2021-04-24 03:37] VITALS: BP 140/54; PULSE 88; TEMP 98.8
--- NOTE | 2021-04-24 06:30 | NUR ---
Report received from LEW Faith. Patient is resting in bed. Call light and bedside table are within reach. Will continue to monitor patient throughout shift.
--- NOTE | 2021-04-24 07:03 | NUR ---
CHANGE OF SHIFT GIVEN TO DAY SHIFT NURSE, SABRINA HACKETT. PATIENT DENIED CHEST PAIN/SOA/NAUSEA THROUGHOUT NIGHT, WITH BED ALARM ON WHEN IN BED. UP TO BATHROOM WITH SBA FROM STAFF OBSERVED GAIT SLOW BUT STEADY, WITH SLOW REPOSITIONING FROM SIT TO STAND WITH PATIENT STATING HAVING SOME R KNEE STIFFNESS/DISCOMFORT DURING MOVEMENT. SEE MAR FOR PAIN MEDS GIVEN.
--- NOTE | 2021-04-24 12:45 | NUR ---
Patient is resting comfortably in bed. All therapies for today are complete.
[2021-04-24 18:14] VITALS: BP 147/60; PULSE 83; TEMP 99.3
--- NOTE | 2021-04-24 19:10 | NUR ---
RECEIVED CHANGE OF SHIFT REPORT FROM DAY SHIFT NURSE.
--- NOTE | 2021-04-25 03:28 | NUR ---
PATIENT SLEEPING, DOES NOT WAKE WHEN STAFF ENTER ROOM. UP IN ROOM INDEPENDENTLY SINCE EARLIER IN DAY, GROUP THERAPY. DENIES CHEST PAIN/SOA/NAUSEA THROUGHOUT THIS SHIFT AT THIS TIME. REPORTS NO PROBLEMS OR CONCERNS WHEN UP IN ROOM AD YEIMY.
[2021-04-25 05:09] VITALS: BP 136/67; PULSE 82; TEMP 98.7
--- NOTE | 2021-04-25 07:13 | NUR ---
Report received from LEW Faith. Patient is resting in bed. Call light and bedside table are within reach. Will continue to monitor throughout shift.
--- NOTE | 2021-04-25 07:15 | NUR ---
CHANGE OF SHIFT REPORT GIVEN TO DAY SHIFT NURSE, SABRINA HACKETT.
--- NOTE | 2021-04-25 19:23 | NUR ---
RECEIVED CHANGE OF SHIFT REPORT FROM DAY SHIFT NURSE. PATIENT UP IN ROOM INDEPENDENTLY WITH NO REPORTED CONCERNS OR COMPLAINTS AT TIME OF REPORT.
[2021-04-25 19:51] VITALS: BP 126/58; PULSE 92; TEMP 99
--- NOTE | 2021-04-26 03:32 | NUR ---
PATIENT SLEEPING AND DOES NOT WAKE WHEN DOOR TO ROOM IS OPENED BY STAFF DURING HOURLY ROUNDS BY THIS NURSE. OBSERVED BREATHING EVEN AND NONLABORED. PATIENT CONTINUES TO BE UP AD YEIMY IN ROOM WITH NO REPORTED PROBLEMS OR CONCERNS.
[2021-04-26 05:22] VITALS: BP 133/45; PULSE 73; TEMP 98.4
--- NOTE | 2021-04-26 07:19 | NUR ---
CHANGE OF SHIFT REPORT GIVEN TO DAY SHIFT NURSE, MARIBEL HACKETT.
--- NOTE | 2021-04-26 08:57 | NUR ---
Received a call from pt's daughter, Pau. She asked if there would be any way of extending the d/c to , 04/29, due to having work done on the steps due to them not being stable. Told her that SW would speak w/ the team & get back w/ her. She also stated they had decided on [facility].
[2021-04-26 17:04] VITALS: BP 127/36; PULSE 82; TEMP 98.3
--- NOTE | 2021-04-26 17:45 | NUR ---
Patient has been doing well today. No complaints of nausea. Had increased pain after the venous doppler. She has been getting pain medications throughout the shift. She has been getting around the room well on her own. No other changes at this time. Call light within reach.
--- NOTE | 2021-04-26 19:01 | NUR ---
RECEIVED CHANGE OF SHIFT REPORT FROM DAY SHIFT NURSE. PATIENT UP AD YEIMY IN ROOM WITH NO REPORTED NEEDS OR CONCERNS AT THIS TIME.
--- NOTE | 2021-04-27 02:07 | NUR ---
PATIENT SLEEPING, DOES NOT WAKE WHEN DOOR TO ROOM IS OPENED BY STAFF DURING HOURLY NURSING ROUNDS. PATIENT UP INDEPENDENTLY IN ROOM WITH NO REPORTED PROBLEMS. CALL LIGHT WITHIN REACH.
[2021-04-27 05:06] VITALS: BP 132/48; PULSE 82; TEMP 98.7
--- NOTE | 2021-04-27 07:17 | NUR ---
CHANGE OF SHIFT REPORT GIVEN TO DAY SHIFT NURSE, JESUS HACKETT.
[2021-04-27] MEDS ORDERED: ELIQUIS 2.5 PO (08:24)
--- NOTE | 2021-04-27 08:47 | NUR ---
Patient resting in bed call light in reach and mod I in room with walker.
--- NOTE | 2021-04-27 09:22 | NUR ---
Attempted to contact [facility] to make a referral. Left message regarding the referral & faxed referral information.
--- NOTE | 2021-04-27 13:00 | NUR ---
Patient in her room with daughter by her side eating her lunch. Patient denies pain at this time. She attended all therapies this morning. Denies any questions. Will continue to monitor.
[2021-04-27 16:00] VITALS: BP 127/52; PULSE 91; TEMP 98.9
--- NOTE | 2021-04-27 18:31 | NUR ---
Patient tolerated diet well this shift. Right knee incision healing it is left open to air. Denied pain this shift. Attended all her therapies. Family stopped by this afternoon and brought her lunch and a shake. She is currently resting in bed, call light in reach and independent in her room with a walker. Reported to night nurse.
--- NOTE | 2021-04-27 18:43 | NUR ---
RECEIVED CHANGE OF SHIFT REPORT FROM DAY SHIFT NURSE.
--- NOTE | 2021-04-28 01:36 | NUR ---
PATIENT SLEEPING, DOES NOT WAKE WHEN DOOR TO ROOM IS OPENED BY STAFF ON NURSING HOURLY ROUNDS. BREATHING NONLABORED AND EVEN. PATIENT IS UP INDEPENDENTLY IN ROOM WITH WALKER WITH NO REPORT PROBLEMS OR CONCERNS.
[2021-04-28 05:53] VITALS: BP 128/53; PULSE 77; TEMP 98.9
--- NOTE | 2021-04-28 06:52 | NUR ---
CHANGE OF SHIFT REPORT GIVEN TO DAY SHIFT NURSE, JESUS HACKETT.
--- NOTE | 2021-04-28 08:02 | NUR ---
Patient independent in her room with her walker and all grooming this morning. She is currently eating her breakfast at this time. Denies any questions at this time.
--- NOTE | 2021-04-28 14:25 | NUR ---
Reviewed the team conference notes w/ pt, who stated she understood & agreed w/. Told her the d/c is still set for tomorrow, 04/29/21, to home w/ home health. Pt stated she is ready. Reviewed the Medicare Rights form w/ pt & pt signed. Copy was given per pt request. Contacted pt's daughter, Pau, & reviewed the team conference notes & confirmed d/c for tomorrow, 04/29/21. She was fine w/ this & had no questions or concerns.
[2021-04-28 17:34] VITALS: BP 114/53; PULSE 80; TEMP 99
--- NOTE | 2021-04-28 21:20 | NUR ---
Patient attended all her therapies. She was independent on eating, toileting, ambulating with a walker around her room and getting in and out of bed. Patient was very tired this evening and had used her call light to have someone help her eat. This nurse reminded patient that she was independent in her room and then educated her on where all the controls are on her bed and how to use them to adjust as needed. Patient was able to assist herself with positioning her table so that she could eat. She is curently resting in bed, call light in reach and independent in her room with a walker.
--- NOTE | 2021-04-28 22:20 | NUR ---
Assessment completed, alert and oriented. Complains pain in her right knee rated 7/10 Ultram PRN given. TEDS is in placed. She said that would be enough for the night and the pain meds will make her sleep too. Otherwise no further complains. Bed alarm is on and call light is within reach. Continue to monitor.
[2021-04-29 03:33] VITALS: BP 117/57; PULSE 72; TEMP 99.1
--- NOTE | 2021-04-29 06:30 | NUR ---
Report received from LEW Sahu. Patient is resting comfortably in bed. Call light and bedside table are within reach. Will continue to monitor patient throughout shift.
--- NOTE | 2021-04-29 09:13 | NUR ---
Visited w/ pt about her d/c for today, 04/29/21. She stated she feels ready. Inquired if she had any questions or concerns about her d/c today, which she did not. Told her that home health has been set up w/ [facility].
--- NOTE | 2021-04-29 09:20 | NUR ---
Faxed d/c orders to [facility].
--- NOTE | 2021-04-29 14:15 | NUR ---
Patient health summary, discharge summary, and home meds printed and reviewed with patient and daughter. Stressed importance of follow up appointments. Reviewed medications. Belongings gathered by REBECCA Clifford and patient's daughter. Pt transported via wheelchair by LEW Leung and seatbelted for ride home. Patient and daughter denied questions. All personal belongings are cleared from the room.
== END 2021-04-29 14:00 | disposition home health service (06) | DRG 561 ==
PROVIDERS: Physician Assistant; ADMIT Internal Medicine
DX: Z47.1 Aftercare following joint replacement surgery (principal); M17.11 Unilateral primary osteoarthritis, right knee; I10 Essential (primary) hypertension; E03.9 Hypothyroidism, unspecified; D64.9 Anemia, unspecified; E66.9 Obesity, unspecified; E78.5 Hyperlipidemia, unspecified; Z79.01 Long term (current) use of anticoagulants; Z96.651 Presence of right artificial knee joint; Z90.710 Acquired absence of both cervix and uterus; Z88.0 Allergy status to penicillin; Z88.2 Allergy status to sulfonamides; Z88.6 Allergy status to analgesic agent; Z87.891 Personal history of nicotine dependence
CPT/HCPCS: 99222-AI; 99231-AI; 99232-AI; 99239

== ENCOUNTER 2021-08-23 19:34 | Emergency (ER) | payer MEDICARE, OTHER ==
[~2021-08-23] VITALS: Ht 160 cm; Wt 99.1 kg
[~2021-08-23 19:34] MED LIST changes: +SKELAXIN 800MG800 MG PO
[2021-08-23 19:41] VITALS: TEMP 98.9
[2021-08-23 21:18] LABS: INR 0.9 (0.8-3.0); PROTHROMBIN TIME 9.8 SECONDS (9.7-12.8)
[2021-08-23 21:39] LABS: ALBUMIN 3.6 gm/dL (3.4-4.8); BILIRUBIN,TOTAL 0.1 mg/dL (0.2-1.2); C-REACTIVE PROTEIN 0.08 mg/dL (0.00-0.50); CALCIUM 9.1 mg/dL (8.4-10.2); CREATININE, serum 1.09 mg/dL (0.57-1.11); POTASSIUM 5.1 mmol/L (3.5-4.5); TOTAL PROTEIN 7.6 gm/dL (6.2-8.1)
[2021-08-23 21:48] LABS: BASO # 0.1 K/mm3 (0.0-0.2); BASO % 0.9 % (0.0-2.0); EOS # 0.1 K/mm3 (0.0-0.7); EOS % 2.1 % (0-4.0); GRAN # 3.2 K/mm3 (1.4-6.5); GRAN % 56.8 % (42.2-75.2); HEMOGLOBIN 10.3 g/dl (12.5-16.0); LYMPH # 1.7 K/mm3 (1.2-3.4); LYMPH % 30.6 % (20.0-51.0); MEAN CELL VOLUME 84 fl (80.0-100.0); MEAN CORPUSCULAR HEMOGLOBIN 26 pg (27.0-31.0); MEAN CORPUSCULAR HGB CONC 31 g/dl (33.0-37.0); MEAN PLATELET VOLUME 10.4 fl (7.4-10.4); MONO # 0.5 K/mm3 (0.1-0.6); MONO % 9.4 % (1.7-9.3); PLATELET COUNT 212 K/mm3 (130-400); RED BLOOD COUNT 3.93 M/mm3 (4.10-5.30); REDCELL DISTRIBUTION WIDTH-CV 15.9 % (11.5-14.5)
[2021-08-23 23:11] VITALS: BP 150/67; PULSE 87
== END 2021-08-23 23:11 | disposition home or self-care (01) ==
LOC: COL.ER 19:34
PROVIDERS: Family Medicine
DX: R53.81 Other malaise (principal); I10 Essential (primary) hypertension; E78.5 Hyperlipidemia, unspecified; E03.9 Hypothyroidism, unspecified; Z96.651 Presence of right artificial knee joint; Z79.899 Other long term (current) drug therapy; Z79.890 Hormone replacement therapy; Z79.01 Long term (current) use of anticoagulants
CPT/HCPCS: J7120

== ENCOUNTER 2021-11-23 20:58 | Emergency (ER) | payer MEDICARE, OTHER ==
[~2021-11-23] VITALS: Ht 165.1 cm; Wt 100.0 kg
[2021-11-23 21:05] VITALS: TEMP 98.4
[2021-11-23 21:23] LABS: BASO # 0.1 K/mm3 (0.0-0.2); BASO % 0.9 % (0.0-2.0); EOS # 0.1 K/mm3 (0.0-0.7); EOS % 1.3 % (0.0-4.0); GRAN # 3.1 K/mm3 (1.4-6.5); HEMOGLOBIN 10.4 g/dl (12.5-16.0); LYMPH # 2.6 K/mm3 (1.2-3.4); LYMPH % 41.1 % (20.0-51.0); MEAN CELL VOLUME 85 fl (80.0-100.0); MEAN CORPUSCULAR HEMOGLOBIN 27 pg (27-31); MEAN CORPUSCULAR HGB CONC 32 g/dl (33.0-37.0); MEAN PLATELET VOLUME 9.9 fl (7.4-10.4); MONO # 0.5 K/mm3 (0.1-0.6); MONO % 7.4 % (1.7-9.3); PLATELET COUNT 283 K/mm3 (130-400); RED BLOOD COUNT 3.81 M/mm3 (4.10-5.30); REDCELL DISTRIBUTION WIDTH-CV 13.8 % (11.5-14.5)
[2021-11-23 21:24] LABS: HEMATOCRIT 32.2 % (37.0-47.0)
[2021-11-23 21:31] LABS: PROTHROMBIN TIME 11.4 SECONDS (9.7-12.8)
[2021-11-23 21:34] LABS: PARTIAL THROMBOPLASTIN TIME 30.8 SECONDS (26.0-37.0)
[2021-11-23 21:52] LABS: ALBUMIN 4.1 gm/dL (3.4-4.8); BILIRUBIN,TOTAL 0.2 mg/dL (0.2-1.2); CALCIUM 9.4 mg/dL (8.4-10.2); CREATININE, serum 1.21 mg/dL (0.57-1.11); POTASSIUM 4.4 mmol/L (3.5-4.5); TOTAL PROTEIN 7.8 gm/dL (6.2-8.1)
[2021-11-23 21:57] LABS: TROPONIN-I 0.019 ng/mL (0.00-0.033)
[2021-11-24 01:23] VITALS: BP 165/72; PULSE 58
== END 2021-11-24 01:00 | disposition home or self-care (01) ==
LOC: COL.ER 20:58
PROVIDERS: Emergency Medicine
DX: U07.1 COVID-19 (principal); J12.82 Pneumonia due to coronavirus disease 2019; Z86.718 Personal history of other venous thrombosis and embolism; Z79.01 Long term (current) use of anticoagulants
CPT/HCPCS: Q9967